=== PATIENT | male | born 1985 | race Caucasian/White ===

== ENCOUNTER 2018-05-11 05:59 | Emergency (ER) | payer OTHER ==
[2018-05-11 06:30] VITALS: BMI 21.8
[2018-05-11 06:31] VITALS: RESP 18; TEMP 98.2
--- NOTE | 2018-05-11 07:24 | ED PDOC ---
Arrival/HPI - General Chief Complaint: Upper Extremity Problem/Injury Time Seen by Provider: 05/11/18 07:04 Historian: Patient - History of Present Illness Narrative History of Present Illness (Text): 05/11/18 07:21 33 y/o M, with no significant past medical history, presents to the ED for evaluation of left shoulder pain radiating to left arm since 3 am this morning. Patient describes the pain as sharp, initially rated at 4/10 in severity, associated with mild chest discomfort consistent with gastric pain. Patient currently informs resolved symptoms without any associated somatic complaints. Patient denies similar symptoms in the past and denies taking any pain medication for the symptoms at home. Patient reports family history of [place] in father, who at age 48, prompting patient to come to the ED for medical evaluation. Patient denies any fevers, chills, headache, dizziness, chest pain, shortness of breath, cough, abdominal pain, nausea, vomiting, diarrhea, back pain, neck pain, numbness/tingling, weakness or any other complaints. Patient reports history of occasional smoking in the past but denies smoking currently. Patient reports history of mildly elevated cholesterol but denies any history of hypertension or diabetes. Time/Duration: 4-6 hours Symptom Onset: Gradual Symptom Course: Resolved Activities at Onset: Light Context: Home Past Medical History - Provider Review Nursing Documentation Reviewed: Yes - Psychiatric Hx Substance Use: No - Anesthesia Hx Anesthesia: No Hx Anesthesia Reactions: No Hx Malignant Hyperthermia: No Family/Social History - Physician Review Nursing Documentation Reviewed: Yes Family/Social History: No Known Family HX Smoking Status: Never Smoked Hx Alcohol Use: Yes Frequency of alcohol use: Socially Hx Substance Use: No Allergies/Home Meds Allergies/Adverse Reactions: Allergies No Known Allergies Allergy (Verified 05/11/18 06:29) Home Medications: Home Meds Medication Instructions Recorded Confirmed No Known Home Med 05/11/18 05/11/18 Review of Systems - Physician Review All systems were reviewed & negative as marked: Yes - Review of Systems Constitutional: absent: Fevers Respiratory: absent: SOB, Cough Cardiovascular: absent: Chest Pain Gastrointestinal: absent: Abdominal Pain, Diarrhea, Nausea, Vomiting Genitourinary Male: absent: Dysuria, Urinary Output Changes Musculoskeletal: Myalgias (left shoulder pain ). absent: Back Pain, Neck Pain Skin: absent: Rash Neurological: absent: Headache, Dizziness Endocrine: absent: Polyuria Psychiatric: absent: Anxiety Physical Exam Vital Signs Reviewed: Yes Vital Signs Temp Pulse Resp BP Pulse Ox 05/11/18 06:30 98.2 F 67 18 134/76 100 Temperature: Afebrile Blood Pressure: Normal Pulse: Regular Respiratory Rate: Normal Appearance: Positive for: Well-Appearing, Non-Toxic, Comfortable Pain Distress: None Mental Status: Positive for: Alert and Oriented X 3 - Systems Exam Head: Present: Atraumatic, Normocephalic Pupils: Present: PERRL Extroacular Muscles: Present: EOMI Conjunctiva: Present: Normal Neck: Present: Normal Range of Motion Respiratory/Chest: Present: Clear to Auscultation, Good Air Exchange. No: Respiratory Distress, Accessory Muscle Use Cardiovascular: Present: Regular Rate and Rhythm, Normal S1, S2. No: Murmurs Abdomen: No: Tenderness, Distention, Peritoneal Signs Back: Present: Normal Inspection Upper Extremity: Present: Normal Inspection. No: Cyanosis, Edema Lower Extremity: Present: Normal Inspection. No: Edema Neurological: Present: GCS=15, CN II-XII Intact, Speech Normal Skin: Present: Warm, Dry, Normal Color. No: Rashes Psychiatric: Present: Alert, Oriented x 3, Normal Insight, Normal Concentration Medical Decision Making ED Course and Treatment: 05/11/18 07:16 Impression: 33 year old male presents to the ED for evaluation of a transient episode of left shoulder pain radiating to left arm. Differential Diagnosis included but are not limited to: -- Musculoskeletal -- ACS Plan: -- Toradol -- EKG -- Reassess and disposition Prior Visits: Notes and results from previous visits were reviewed. Progress Notes: 05/11/18 07:16 Patient was made aware of EKG reading. Patient was offered labs for evaluation of cardiac enzymes but patient refuses stating he has to go to work. Patient agrees to following up with burr filer instead. Patient will be discharged home with follow-up instructions. - EKG Interpretation EKG Interpretation (Text): 05/11/18 07:30 EKG: Ordered, reviewed, and independently interpreted the EKG. Rate : 67 BPM Rhythm : NSR Interpretation : Early repolarization noted. No T wave inversion. Interpreted by ED Physician: Yes Type: 12 lead EKG - Medication Orders Current Medication Orders: Discontinued Medications Ketorolac Tromethamine (Toradol) 60 mg IM STAT STA Stop: 05/11/18 07:16 - Scribe Statement The provider has reviewed the documentation as recorded by the Scribe Brandon Conner. All medical record entries made by the Scribe were at my direction and personally dictated by me. I have reviewed the chart and agree that the record accurately reflects my personal performance of the history, physical exam, medical decision making, and the department course for this patient. I have also personally directed, reviewed, and agree with the discharge instructions and di sposition. Disposition/Present on Arrival - Present on Arrival History of DVT/PE: No History of Uncontrolled Diabetes: No Urinary Catheter: No History of Decub. Ulcer: No History Surgical Site Infection Following: None - Disposition Diagnosis: Chest pain Disposition: HOME/ ROUTINE Disposition Time: 07:30 Condition: IMPROVED Discharge Instructions (ExitCare): Chest Pain That Is Not Caused by the Heart (DC), Chest Pain (ED) Print Language: VINCENTIAN Additional Instructions: All medical record entries made by the Scribe were at my direction and personally dictated by me. I have reviewed the chart and agree that the record accurately reflects my personal performance of the history, physical exam, medical decision making, and the department course for this patient. I have also personally directed, reviewed, and agree with the discharge instructions and disposition. Please follow up with the burr filer in 3-5 days Referrals: Aminah Tirado MD [Staff Provider] - Follow up with primary Forms: [facility] (Greenlandic), WORK NOTE
[2018-05-11 07:51] VITALS: BP 136/84; PULSE 78; O2SAT 99
--- NOTE | 2018-05-11 16:22 | CARD ---
APPROVED REPORT Date of service: 05/11/2018 EKG Measurement Heart [id number] <Conclusion> Normal sinus rhythm Early repolarization LVH by voltage
== END 2018-05-11 07:50 | disposition home or self-care (01) ==
LOC: ED 05:59
DX: R07.9 Chest pain, unspecified (principal); Z82.49 Family history of ischemic heart disease and other diseases of the circulatory system